=== PATIENT | female | born 1960 | race Caucasian/White ===

== ENCOUNTER 2020-02-11 21:26 | Emergency (ER) | payer OTHER ==
[~2020-02-11] VITALS: Ht 165.1 cm; Wt 77.7 kg
[2020-02-11] MEDS ORDERED: OMEP40CA97 PO (21:35)
[2020-02-11] MEDS ORDERED: ATOR1TAB21 PO (21:35)
[2020-02-11] MEDS ORDERED: EXEM25TA PO (21:35)
[2020-02-11] MEDS ORDERED: LIDOCAINE 4% CREAM 5GM (LMX4) TOP ONE (22:45)
--- NOTE | 2020-02-11 23:32 | REPVR ---
PROCEDURE INFORMATION: Exam: CT Chest Without Contrast Exam date and time: 02/11/2020 10:45 PM Age: 59 years old Clinical indication: Injury or trauma; Fall; Initial encounter; Blunt trauma (contusions or hematomas); Additional info: Fall, PT tender, right ribs TECHNIQUE: Imaging protocol: Computed tomography of the chest without contrast. 3D rendering: MIP and/or 3D reconstructed images were created by the technologist. Radiation optimization: All CT scans at this facility use at least one of these dose optimization techniques: automated exposure control; mA and/or kV adjustment per patient size (includes targeted exams where dose is matched to clinical indication); or iterative reconstruction. COMPARISON: No relevant prior studies available. FINDINGS: Lungs: Mild right base atelectasis. No focal consolidation. Pleural space: Unremarkable. No pneumothorax. No pleural effusion. Heart: Unremarkable. No cardiomegaly. No pericardial effusion. Aorta: Unremarkable. No aortic aneurysm. Lymph nodes: Unremarkable. No enlarged lymph nodes. Gallbladder and bile ducts: Status post cholecystectomy. Adrenals: Possible right adrenal nodule, partially seen. Kidneys and ureters: Left renal cyst partially seen measuring up to 43 mm. Stomach and bowel: Status post gastric sleeve surgery. Bones/joints: Nondisplaced hairline fracture of the right lateral 3rd rib, 4th rib, and 5th rib. Degenerative changes of the spine. Soft tissues: Surgical clips in left axilla in left breast posteriorly IMPRESSION: Nondisplaced hairline fracture of the right lateral 3rd rib, 4th rib, and 5th rib. Electronically signed by: Ny Whitehead On 02/11/2020 23:31:40 PM
[2020-02-12] MEDS ORDERED: ACETAMINOPHEN 325 MG TAB PO ONE (00:15)
[2020-02-12] MEDS ORDERED: NORCO 5/325MG TABLET (BULK FOR ED) PO ONE (00:15)
[2020-02-12] MEDS ORDERED: NORC1TAB7 PO (00:30)
[2020-02-12 01:07] VITALS: BP 141/57
--- NOTE | 2020-02-12 01:08 | REPVR ---
PROCEDURE INFORMATION: Exam: CT Right Upper Extremity Without Contrast, Elbow Exam date and time: 02/12/2020 12:13 AM Age: 59 years old Clinical indication: Injury or trauma; Fall; Initial encounter; Fracture, traumatic injury; Nondisplaced; Radius; Right; Proximal end; Additional info: Radial head fracture TECHNIQUE: Imaging protocol: CT of the Right upper extremity without contrast was performed. Exam focused on the elbow. Radiation optimization: All CT scans at this facility use at least one of these dose optimization techniques: automated exposure control; mA and/or kV adjustment per patient size (includes targeted exams where dose is matched to clinical indication); or iterative reconstruction. COMPARISON: CR Elbow, complete RIGHT 02/11/2020 10:44 PM FINDINGS: Bones/joints: Nondisplaced radial head fracture. Nondisplaced fracture of the ulnar head. No dislocation. Small suprapatellar joint effusion. Soft tissues: Mild soft tissue swelling. IMPRESSION: Nondisplaced radial head fracture. Nondisplaced fracture of the ulnar head. No dislocation. Small suprapatellar joint effusion. Mild soft tissue swelling. Electronically signed by: Ny Whitehead On 02/12/2020 01:07:35 AM
--- NOTE | 2020-02-12 07:46 | REP ---
Clinical: Trauma. Technique: AP, lateral, bilateral oblique views of the right elbow. Findings: Radial head fracture is appreciated with surrounding soft tissue swelling and effusion. Subtle injury involving the coronoid process of the ulna cannot be excluded. Impression: Radial head fracture and swelling. Possible coronoid fracture. Electronically Signed by Yon Solis MD 02/12/2020 07:37 A
== END 2020-02-12 01:56 | disposition home or self-care (01) ==
LOC: M ED 21:26
DX: S22.41XA Multiple fractures of ribs, right side, initial encounter for closed fracture (principal); S52.124A Nondisplaced fracture of head of right radius, initial encounter for closed fracture; W10.8XXA Fall (on) (from) other stairs and steps, initial encounter; Y92.018 Other place in single-family (private) house as the place of occurrence of the external cause; K21.9 Gastro-esophageal reflux disease without esophagitis; Z98.84 Bariatric surgery status; Z79.899 Other long term (current) drug therapy; Z88.1 Allergy status to other antibiotic agents; Z88.2 Allergy status to sulfonamides